=== PATIENT | female | born 1955 | race Caucasian/White ===

== ENCOUNTER 2020-11-06 05:44 | Inpatient (IN) ==
[2020-11-06] MEDS ORDERED: VANCOMYCIN INJ 1,000 MG in SODIUM CHLORIDE 0.9% 250 ML IV ONE (06:30)
[2020-11-06] MEDS ORDERED: fentaNYL 100 MCG/2 ML VIAL ONE (06:47)
[2020-11-06] MEDS ORDERED: LIDOCAINE 2% 5 ML VIAL ONE (06:47)
[2020-11-06] MEDS ORDERED: KETAMINE 500 MG/10 ML VIAL ONE (06:47)
[2020-11-06] MEDS ORDERED: MIDAZOLAM 2 MG/2 ML VIAL ONE ×2 (06:47→08:06)
[2020-11-06] MEDS ORDERED: propofoL 200 MG/20 ML VIAL IV ONE ×2 (06:47→09:41)
[2020-11-06] MEDS ORDERED: ONDANSETRON 4 MG/2 ML VIAL ONE (06:50)
[2020-11-06] MEDS ORDERED: ROPIVACAINE 0.5% 30 ML VIAL ONE (07:08)
[2020-11-06] MEDS ORDERED: DEXAMETHASONE 4 MG/1 ML VIAL ONE (07:08)
[2020-11-06] MEDS ORDERED: ceFAZolin 1,000 MG in SYRINGE 1 EACH IV ONE (07:30)
[2020-11-06] MEDS ORDERED: LACTATED RINGERS 1,000 ML IV SCH (07:30)
[2020-11-06] MEDS ORDERED: BACITRACIN OINT 0.9 GM PACK TOP ONE (07:46)
[2020-11-06] MEDS ORDERED: ePHEDrine 50 MG/ML VIAL ONE (08:49)
[2020-11-06] MEDS ORDERED: ESMOLOL 100 MG/10 ML VIAL IV ONE (08:59)
[2020-11-06] MEDS ORDERED: LACTATED RINGERS 1,000 ML IV ONE (09:03)
[2020-11-06] MEDS ORDERED: SODIUM CHLORIDE 0.9% 250 ML IV ONE (09:03)
[2020-11-06] MEDS ORDERED: LACTULOSE 20 GM/30 ML UDCUP PO PRN (09:50)
[2020-11-06] MEDS ORDERED: MAGNESIUM HYDROXIDE SUSP 30 ML UDCUP PO PRN (09:50)
[2020-11-06] MEDS ORDERED: TEMAZEPAM 7.5 MG CAPSULE PO PRN (09:50)
[2020-11-06] MEDS ORDERED: PROMETHAZINE 25 MG/1 ML VIAL IM PRN (09:50)
[2020-11-06] MEDS ORDERED: BISACODYL 10 MG SUPP RECTAL PRN (09:50)
[2020-11-06] MEDS ORDERED: diphenhydrAMINE CAP 25 MG CAPSULE PO PRN (09:50)
[2020-11-06] MEDS ORDERED: MORPHINE 4 MG/1 ML VIAL IV PRN (09:50)
[2020-11-06] MEDS: ceFAZolin 1,000 MG in SYRINGE 1 EACH IV SCH (15:55)
[2020-11-06] MEDS: ESCITALOPRAM 10 MG TABLET PO SCH ×2 (23:08→23:11)
[2020-11-06] MEDS: levETIRAcetam 500 MG TABLET PO SCH (23:09)
[2020-11-06] MEDS: DOCUSATE SODIUM 100 MG CAPSULE PO SCH (23:09)
[2020-11-06] MEDS: ZONISAMIDE 100 MG CAPSULE PO SCH (23:09)
[2020-11-06] MEDS: ONDANSETRON 4 MG/2 ML VIAL IV PRN (23:48)
[2020-11-07 05:19] LABS: Basophils % 0.4 % (0.0-0.8); Eosinophils % 0.2 % (0.00-10.9); Hemoglobin 10.9 GM/DL (12.0-16.0); Immature Granulocytes % 0.4 %; Immature Granulocytes Absolute 0.04 #; Lymphocytes # 1.4 10*3/uL (1.4-4.0); Lymphocytes % 14.8 % (21.3-54.2); Mean Corpuscular Volume 95.7 FL (87-102); Mean Platelet Volume 9.7 FL (9.6-12.0); Monocytes % 12.9 % (1.7-12.7); Neutrophils % 71.3 % (38.7-73.9); Platelet Count 164 T/CUMM (130-400); Red Blood Count 3.45 MC/CUMM (3.8-5.5); Red Cell Distribution Width 11.9 % (9.3-17.3); White Blood Count 9.1 T/CUMM (4-12)
[2020-11-07 05:47] LABS: Calcium 8.3 MG/DL (8.5-10.1); Potassium 4.2 MMOL/L (3.5-5.1)
[2020-11-07] MEDS: FONDAPARINUX 2.5 MG/0.5 ML SYRINGE SUBCUT SCH (07:08)
[2020-11-07] MEDS: LEVOTHYROXINE 88 MCG TABLET PO SCH (07:09)
[2020-11-07] MEDS ORDERED: ceFAZolin 1,000 MG in SYRINGE 1 EACH IV SCH (08:00)
[2020-11-07] MEDS: DOCUSATE SODIUM 100 MG CAPSULE PO SCH ×2 (09:15→22:08)
[2020-11-07] MEDS: levETIRAcetam 500 MG TABLET PO SCH ×2 (09:15→22:08)
[2020-11-07] MEDS: ONDANSETRON 4 MG/2 ML VIAL IV PRN ×2 (09:25→23:25)
[2020-11-07] MEDS: ZONISAMIDE 100 MG CAPSULE PO SCH (16:44)
[2020-11-07] MEDS: ESCITALOPRAM 10 MG TABLET PO SCH (22:09)
[2020-11-08] MEDS: LEVOTHYROXINE 88 MCG TABLET PO SCH (07:43)
[2020-11-08] MEDS: FONDAPARINUX 2.5 MG/0.5 ML SYRINGE SUBCUT SCH (07:43)
[2020-11-08] MEDS: ceFAZolin 1,000 MG in SYRINGE 1 EACH IV SCH (07:53)
[2020-11-08] MEDS: levETIRAcetam 500 MG TABLET PO SCH (08:53)
[2020-11-08] MEDS: DOCUSATE SODIUM 100 MG CAPSULE PO SCH (08:53)
[2020-11-08] MEDS: ONDANSETRON 4 MG/2 ML VIAL IV PRN (10:54)
[2020-11-08] MEDS: ZONISAMIDE 100 MG CAPSULE PO SCH (15:43)
[2020-11-08 15:44] VITALS: BP 146/62
== END 2020-11-08 17:52 | disposition home health service (06) | DRG 470 ==
LOC: N.OR 05:44 → N.SDSINP 05:46 → N.3E 13:03
PROVIDERS: ADMIT Orthopaedic Surgery; ATTEND Orthopaedic Surgery